=== PATIENT | female | born 1995 | race Two or more races ===

== ENCOUNTER 2017-09-19 01:46 | Emergency (ER) | payer SELFPAY ==
[~2017-09-19] VITALS: Ht 154.9 cm; Wt 48.5 kg
[2017-09-19 01:53] VITALS: BP 118/71
[2017-09-19] MEDS ORDERED: IBUPROFEN 400 MG TABLET ONE (02:14)
[2017-09-19] MEDS ORDERED: IBUPROFEN 400 MG TABLET PO ONE (02:30)
== END 2017-09-19 02:58 | disposition home or self-care (01) ==
LOC: ER 01:50
DX: S09.90XA Unspecified injury of head, initial encounter (principal); M54.5 Low back pain; V43.62XA Car passenger injured in collision with other type car in traffic accident, initial encounter; Y93.89 Activity, other specified; Y92.410 Unspecified street and highway as the place of occurrence of the external cause; Y99.8 Other external cause status
CPT/HCPCS: 70450; 99284; A4606; Z7610